=== PATIENT | male | born 1985 | race Caucasian/White ===

== ENCOUNTER 2024-02-21 02:47 | Emergency (ER) | payer MEDICAID ==
[~2024-02-21] VITALS: Ht 172.7 cm; Wt 63.0 kg
[2024-02-21] MEDS: SODIUM CHLORIDE 0.9% 3,000 ML IV ONE (05:00)
[2024-02-21 06:03] VITALS: BP 117/65; PULSE 82; RESP 16; TEMP 98.5; O2SAT 98
== END 2024-02-21 06:02 | disposition home or self-care (01) ==
LOC: ER 02:47 → EDBD 02:47 → ER 06:02
DX: S53.402A Unspecified sprain of left elbow, initial encounter (principal); F10.129 Alcohol abuse with intoxication, unspecified; F12.10 Cannabis abuse, uncomplicated; M54.2 Cervicalgia; Z77.22 Contact with and (suspected) exposure to environmental tobacco smoke (acute) (chronic); V03.99XA Pedestrian with other conveyance injured in collision with car, pick-up truck or van, unspecified whether traffic or nontraffic accident, initial encounter; Y93.01 Activity, walking, marching and hiking; Y92.89 Other specified places as the place of occurrence of the external cause; Y99.8 Other external cause status; Z88.6 Allergy status to analgesic agent; Y90.8 Blood alcohol level of 240 mg/100 ml or more
CPT/HCPCS: 70450; 72125; 73070